=== PATIENT | female | born 1960 | race Caucasian/White ===

== ENCOUNTER 2019-05-20 07:49 | Emergency (ER) | payer OTHER ==
[~2019-05-20] VITALS: Ht 162.6 cm; Wt 107.0 kg
[2019-05-20 08:00] VITALS: Ht 162.6 cm; Wt 107.0 kg
[2019-05-20 09:52] VITALS: BP 125/50
== END 2019-05-20 09:52 | disposition home or self-care (01) ==
LOC: ED 07:49
DX: M79.662 Pain in left lower leg (principal)
CPT/HCPCS: Q0092

== ENCOUNTER 2019-10-24 10:52 | Observation (INO) | payer OTHER ==
[~2019-10-24] VITALS: Ht 162.6 cm; Wt 102.1 kg
[2019-10-24 11:00] VITALS: Ht 162.6 cm; Wt 102.1 kg
[2019-10-24] MEDS ORDERED: HORIZANT300 MG (13:15)
[2019-10-24] MEDS ORDERED: LIPITOR40 MG (13:15)
[2019-10-24 15:10] LABS: BASOPHIL % 0.3 % (0-2); PLATELET COUNT 271 x10^3mcL (130-400); RED CELL DISTRIBUTION WIDTH 14.1 % (11.5-14.5)
[2019-10-24 15:22] LABS: CALCIUM 9.1 mg/dL (8.5-10.1); CARBON DIOXIDE 26.6 mmol/L (21-32); CHLORIDE SERUM 105 mmol/L (98-107); CREATININE SERUM 0.7 mg/dL (0.6-1.0); GFR1 > 60 mL/min; GLUCOSE SERUM 108 mg/dL (74-106); SODIUM SERUM 141 mmol/L (136-145)
[2019-10-24 22:13] VITALS: BP 133/57
[2019-10-25 04:41] VITALS: BP 120/53
[2019-10-25 08:06] VITALS: BP 106/45
[2019-10-25 11:39] VITALS: BP 106/45
[2019-10-25 12:16] VITALS: BP 118/61
== END 2019-10-25 12:40 | disposition home or self-care (01) ==
LOC: ED 10:52 → DS 15:00 → EDBEDREQSVC 15:01 → MU 18:58
PROVIDERS: Emergency Medicine; ADMIT Orthopaedic Surgery
DX: T84.020A Dislocation of internal right hip prosthesis, initial encounter (principal); E78.00 Pure hypercholesterolemia, unspecified; X58.XXXA Exposure to other specified factors, initial encounter; Y92.89 Other specified places as the place of occurrence of the external cause; Y93.89 Activity, other specified; Y99.8 Other external cause status
CPT/HCPCS: 97112-GP; G0378; J2175; J2250; J2270; J2405; J2704; J3010; J7120